=== PATIENT | male | born 1940 | race Caucasian/White ===

== ENCOUNTER 2018-07-16 06:08 | Day surgery (SDC) | payer MEDICARE, BC ==
[~2018-07-16 06:08] MED LIST: Lactated Ringers 1,000 ML IV SCH; Lidocaine 1%/Sod Bicarbonate in NS 8.4% 1 ML Syringe IDERM PRN; Sodium Chloride 0.9% 10 ML Syringe FLUSH PRN
[2018-07-16] MEDS ORDERED: Lidocaine 1% 30 ML SDV ONE (07:11)
[2018-07-16] MEDS ORDERED: Bupivacaine 0.25% 30 ML SDV ONE (07:11)
[2018-07-16] MEDS ORDERED: ceFAZolin 1 GM Vial ONE (07:35)
[2018-07-16] MEDS ORDERED: Midazolam 1 MG/ML 2 ML SDV ONE (07:36)
[2018-07-16] MEDS ORDERED: Propofol 200 MG/20 ML SDV ONE (07:36)
[2018-07-16] MEDS ORDERED: Ondansetron 4 MG/2 ML SDV ONE (07:36)
[2018-07-16] MEDS ORDERED: Lidocaine 1% 0 ML ONE (07:36)
[2018-07-16] MEDS ORDERED: fentaNYL 100 MCG/2 ML SDV ONE (07:36)
--- NOTE | 2018-07-21 07:05 | PCM.OPNOTE ---
- General Post-Op/Procedure Note Date of Surgery/Procedure: 07/16/18 Operative Procedure(s): left carpal tunnel release Pre Op Diagnosis: left median nerve compression neuropathy Post-Op Diagnosis: Same Anesthesia Technique: Local Primary Surgeon: Norbert Poole Cribber: Dorene Benavidez in mLs: 5 Complications: None Condition: Good
--- NOTE | 2018-07-21 08:16 | OR ---
DATE OF OPERATION: 07/16/2018 SURGEON: Norbert Poole MD OPERATION PERFORMED: Left carpal tunnel release. PREOPERATIVE DIAGNOSIS: Left median nerve compression neuropathy. POSTOPERATIVE DIAGNOSIS: Left median nerve compression neuropathy. ANESTHESIA: Local only. ANESTHESIA PROVIDER: RISK INVESTIGATOR: Dorene Benavidez PA-C ESTIMATED BLOOD LOSS: Less than 5 mL. COMPLICATIONS: None. CONDITION: Stable. DESCRIPTION OF PROCEDURE: The patient was identified in the preop holding area. Proper site was marked and identified by the surgeon. The patient was taken back to the operating theater where after adequate anesthesia, the patient's left upper extremity was sterilely prepped and draped in the usual sterile fashion. OR time-out was performed. The patient did not receive antibiotics and it is not indicated for soft tissue hand procedure. At this time, the left upper extremity was exsanguinated and an Esmarch was used as a tourniquet on the forearm. At this time, using 1% lidocaine without epinephrine and 0.25% Marcaine without epinephrine, the palmar cutaneous branch of the median nerve was anesthetized and then the incisional site was anesthetized using Wallace cardinal line and ulnar border of the fourth digit as reference. Once this had set up, an incision was made. Blunt dissection was taken down to the palmar cutaneous fascia. Palmar cutaneous fascia was incised with a [place] blade. At this time, the transverse carpal ligament was identified. A small rent was made in the transverse carpal ligament with a [place] blade under direct visualization. Resection of the transverse carpal ligament was done distally using tenotomy scissors making sure to stop short of the palmar arch. At this time, attention was turned proximally after it was found to be adequately released. Using the tenotomy scissors keeping the tips ulnar to protect the palmar cutaneous branch of the median nerve, the superficial forearm fascia as well as the transverse carpal ligament were resected proximally. It was found to be adequate release both proximally and distally. At this time, adequate saline was irrigated through the wound. 4-0 nylon sutures were used closure of the skin. The patient was placed in a sterile soft dressing and sent to PACU in stable condition. MMODAL /[id number]
== END 2018-07-16 09:05 | disposition home or self-care (01) ==
LOC: JD.SDS 06:08
PROVIDERS: ATTEND Orthopaedic Surgery
DX: G56.12 Other lesions of median nerve, left upper limb (principal); Z88.6 Allergy status to analgesic agent; M10.9 Gout, unspecified; J15.9 Unspecified bacterial pneumonia; H81.10 Benign paroxysmal vertigo, unspecified ear; I25.10 Atherosclerotic heart disease of native coronary artery without angina pectoris; I10 Essential (primary) hypertension; E03.9 Hypothyroidism, unspecified; J45.909 Unspecified asthma, uncomplicated; E78.49 Other hyperlipidemia; Z79.899 Other long term (current) drug therapy; Z79.2 Long term (current) use of antibiotics; Z87.891 Personal history of nicotine dependence
CPT/HCPCS: 64721; 87641; J0690; J3490; J7120; J2001; J2250; J2405; J2704; J3010

== ENCOUNTER 2021-12-28 11:16 | Emergency (ER) | payer OTHER, MEDICARE, BC ==
[2021-12-28] MEDS ORDERED: Bupivacaine 0.5% 10 ML SDV INJECT ONE (11:52)
[2021-12-28] MEDS ORDERED: Lidocaine 1% 10 ML MDV INJECT ONE (11:52)
== END 2021-12-28 13:10 | disposition home or self-care (01) ==
LOC: JD.ED 11:16
DX: S61.213A Laceration without foreign body of left middle finger without damage to nail, initial encounter (principal); S61.212A Laceration without foreign body of right middle finger without damage to nail, initial encounter; E78.00 Pure hypercholesterolemia, unspecified; I10 Essential (primary) hypertension; M10.9 Gout, unspecified; M19.90 Unspecified osteoarthritis, unspecified site; Z79.899 Other long term (current) drug therapy; W26.8XXA Contact with other sharp object(s), not elsewhere classified, initial encounter; Y99.0 Civilian activity done for income or pay
CPT/HCPCS: 12002; 73140; 99283; J3490; 99282

== ENCOUNTER 2023-09-11 06:30 | Day surgery (SDC) | payer MEDICARE, OTHER ==
[2023-09-11] MEDS ORDERED: ceFAZolin 1 GM Vial ONE (06:54)
[2023-09-11] MEDS: Bupivacaine 0.25% 10 ML SDV ONE (07:20)
[2023-09-12] MEDS: Lidocaine 1% 10 ML MDV ONE (07:20)
== END 2023-09-11 07:35 | disposition home or self-care (01) ==
LOC: JD.SDS 06:30
PROVIDERS: ATTEND Orthopaedic Surgery
DX: G56.01 Carpal tunnel syndrome, right upper limb (principal); G56.11 Other lesions of median nerve, right upper limb; I10 Essential (primary) hypertension; J45.909 Unspecified asthma, uncomplicated; I25.10 Atherosclerotic heart disease of native coronary artery without angina pectoris; Z87.891 Personal history of nicotine dependence; Z79.899 Other long term (current) drug therapy
CPT/HCPCS: J0690; J3490